=== PATIENT | female | born 1990 | race Caucasian/White ===

== ENCOUNTER 2016-08-13 09:55 | Inpatient (IN) | payer OTHER ==
[~2016-08-13] VITALS: Ht 160 cm; Wt 96.4 kg
[2016-08-13] MEDS ORDERED: PRENAT PO (10:17)
[2016-08-13] MEDS ORDERED: CHOL400T10 PO (10:17)
[2016-08-13 10:18] VITALS: Ht 160 cm; Wt 96.4 kg
[2016-08-13 10:19] VITALS: BP 134/82; PULSE 122; RESP 20
[2016-08-13] MEDS ORDERED: OXYTOCIN 30 UNITS/LR 500 ML IV SCH (11:00)
[2016-08-13] MEDS ORDERED: IBUPROFEN 600 MG TAB PO PRN (11:00)
[2016-08-13] MEDS ORDERED: CARBOPROST 250 MCG INJ IM PRN (11:00)
[2016-08-13] MEDS ORDERED: OXYTOCIN 30 UNITS/LR 500 ML IV PRN (11:00)
[2016-08-13] MEDS ORDERED: LIDOCAINE 1% (MPF) 30 ML INJ INJ PRN (11:00)
[2016-08-13] MEDS ORDERED: BUTORPHANOL 2 MG INJ IV PRN (11:00)
[2016-08-13] MEDS ORDERED: ACETAMINOPHEN/CODEINE #3 TAB PO PRN (11:00)
[2016-08-13] MEDS ORDERED: METHYLERGONOVINE 0.2 MG INJ IM PRN (11:00)
[2016-08-13] MEDS ORDERED: MISOPROSTOL 200 MCG TAB PR PRN (11:00)
[2016-08-13] MEDS: LACTATED RINGER'S 1,000 ML IV SCH ×3 (11:25→21:51)
[2016-08-13 11:38] LABS: ADD SCAN DIFF NO
[2016-08-13] MEDS ORDERED: DINOPROSTONE 10 MG VAG SUPP VAG ONE (11:45)
[2016-08-13 11:51] LABS: INR 0.9; PROTIME 12.1 Sec (12.2-14.2); PT RATIO 0.9
[2016-08-13 11:52] LABS: PARTIAL THROMBOPLASTIN TIME 25.8 Sec (25.0-35.0)
[2016-08-13] MEDS ORDERED: LACTATED RINGER'S 1,000 ML IV PRN (12:00)
[2016-08-13 12:02] LABS: BASOPHILS % 0.3 % (0.0-2.0); EOSINOPHILS # 0.1 10^3/ul (0.0-0.5); EOSINOPHILS % 0.8 % (0.0-7.0); HEMATOCRIT 36.9 % (37.0-47.0); LYMPHOCYTES # 1.2 10^3/ul (0.8-2.9); LYMPHOCYTES % 13.7 % (15.0-51.0); MEAN CORPUSCULAR HEMOGLOBIN 30.2 pg (29.0-33.0); MEAN CORPUSCULAR HGB CONC 32.5 g/dl (32.0-37.0); MEAN CORPUSCULAR VOLUME 92.9 fl (82.0-101.0); MEAN PLATELET VOLUME 10.2 fl (7.4-10.4); MONOCYTE # 0.7 10^3/ul (0.3-0.9); MONOCYTES % 7.2 % (0.0-11.0); PLATELET COUNT 228 10^3/UL (140-415); RED BLOOD COUNT 3.97 10^6/ul (4.20-5.40); RED CELL DISTRIBUTION WIDTH 13.8 % (11.5-14.5)
--- NOTE | 2016-08-13 17:48 | HP ---
Date/Time of Note Date/Time of Note DATE: 08/13/16 TIME: 17:42 OB - History Hx of Present Free Text/Dictation 26y.o at 39w1d here for induction of laboe electively Chief Complaint: for induction of labor Estimated Due Date: Aug 19, 2016 : 2 Para: 1 Spontaneous : 0 Therapeutic : 0 Care: Good Care Ultrasounds: Normal mid trimester US Obstetrical Complications: None Medical Complications: None Past Family/Social History * Past Medical, Surgical, Family and Obstetric Histories reviewed from chart. Blood Type: O+ Rubella: not immune (equivocal) RPR/VDRL: Negative GBS Status: Negative HBsAG: Negative OB Admission Exam Vital Signs Vital Signs Vital Signs Date Time Temp Pulse Resp B/P Pulse Ox O2 Delivery O2 Flow Rate FiO2 08/13/16 10:19 98.7 122 20 134/82 Room Air Physical Exam HEENT: WNL Heart: Rhythm Normal Lungs: Clear, Equal Abdomen: WNL Extremities: Normal Reflexes: Normal Cervical Dilatation: 1cm Effacement: 50% Station: -3 Membranes: Intact Amniotic Fluid: Unevaluable Heart Rate: 130's Decelerations: Variable Decelerations Varibility: Moderate Contractions on Admission: < 5 Minutes Apart Intensity: Mild Last 72 hours Lab Results CBC & BMP 08/13/16 11:20 OB Assessment/Plan Reason for admission: induction of labor Other Assessment: IUP 39W1D Induction Method: per Misoprostol Protocol SERGIO GALDAMEZ MD Aug 13, 2016 17:47
[2016-08-13] MEDS ORDERED: FENTAnyl 2MCG/ML-ROPIV 0.2% 100 ML ONE (21:20)
[2016-08-14 03:13] LABS: BARBITURATES Negative (NEGATIVE); BENZODIAZEPINES Negative (NEGATIVE); CANNABINOIDS Negative (NEGATIVE); COCAINE Negative (NEGATIVE); OPIATES Negative (NEGATIVE)
[2016-08-14] MEDS: FENTAnyl 2MCG/ML-ROPIV 0.2% 100 ML BAG EPI SCH ×2 (03:42→10:06)
[2016-08-14] MEDS: LACTATED RINGER'S 1,000 ML IV SCH ×2 (03:58→06:37)
[2016-08-14] MEDS ORDERED: NALOXONE (0.4 MG/ML) INJ IV PRN (04:00)
[2016-08-14] MEDS ORDERED: HYDROmorphONE 1 MG/ML SYG IV PRN ×2 (04:00)
[2016-08-14] MEDS ORDERED: DIPHENHYDRAMINE 50 MG INJ IV PRN (04:00)
[2016-08-14] MEDS ORDERED: ONDANSETRON 4 MG INJ IV PRN (04:00)
[2016-08-14] MEDS ORDERED: MINERAL OIL LIGHT 10 ML VIAL TOP ONE (11:30)
[2016-08-14] MEDS: OXYTOCIN 30 UNITS/LR 500 ML IV SCH ×2 (12:04→12:32)
--- NOTE | 2016-08-14 13:32 | LDN ---
Date/Time of Note Date/Time of Note DATE: 08/14/16 TIME: 13:29 Delivery Summary op spontaneous rotation normal vaginal delivery Placenta Delivered: Spontaneously Meconium: Thick Perineum intact?: No Perineal laceration: 1 Perineal laceration repair: 000ch gut left periurethral laceration Anesthesia type: Epidural Estimated blood loss: 100 Sponge & Needle done & correct: Yes All needle counts correct: Yes Any foreign bodies felt in the: No Problems: Delivery Information Sex Infant Sex: male Apgars 1 Minute: 8 5 Minute: 9 Suctioning Nose & mouth suctioned at med: Yes Umbilical Cord Umbilical cord with: 3 Vessels Cord presentations: no nuchal cord Cord Blood was obtained: Yes Mother & Baby Disposition Disposition Mom & Baby to Maternity; Good: Yes Mom transferred to: Other () Baby to NICU: No SERGIO GALADMEZ MD Aug 14, 2016 13:32
[2016-08-14 14:20] VITALS: BP 124/58; RESP 18
[2016-08-14 16:25] VITALS: BP 120/60; PULSE 88; RESP 18
[2016-08-14] MEDS ORDERED: OXYTOCIN 30 UNITS/LR 500 ML IV PRN (16:30)
[2016-08-14] MEDS ORDERED: LANOLIN 7 GM TUBE TOP PRN (16:30)
[2016-08-14] MEDS ORDERED: OXYCODONE/ASPIRIN (4.88/325) TAB PO PRN ×2 (16:30)
[2016-08-14] MEDS ORDERED: MISOPROSTOL 200 MCG TAB PR PRN (16:30)
[2016-08-14] MEDS ORDERED: WITCH HAZEL/GLYCERIN PAD PR PRN (16:30)
[2016-08-14] MEDS ORDERED: METHYLERGONOVINE 0.2 MG INJ IM PRN (16:30)
[2016-08-14] MEDS ORDERED: ZOLPIDEM 5 MG TAB PO PRN (16:30)
[2016-08-14] MEDS ORDERED: BENZOCAINE 20% 56 ML SPRAY TOP PRN (16:30)
[2016-08-14] MEDS ORDERED: CARBOPROST 250 MCG INJ IM PRN (16:30)
[2016-08-14] MEDS: IBUPROFEN 600 MG TAB PO SCH ×2 (17:34→23:22)
[2016-08-14 20:00] VITALS: BP 133/76; PULSE 79; RESP 20
[2016-08-14] MEDS: SENNA/DOCUSATE NA (8.6MG/50MG) TAB PO SCH (21:42)
[2016-08-15 04:26] VITALS: BP 120/60; PULSE 76; RESP 20
[2016-08-15] MEDS: IBUPROFEN 600 MG TAB PO SCH ×4 (05:35→23:59)
[2016-08-15 06:54] LABS: ADD SCAN DIFF NO
[2016-08-15 07:00] LABS: BASOPHILS % 0.2 % (0.0-2.0); EOSINOPHILS # 0.2 10^3/ul (0.0-0.5); EOSINOPHILS % 1.5 % (0.0-7.0); HEMATOCRIT 32.5 % (37.0-47.0); HEMOGLOBIN 10.6 g/dl (12.0-16.0); LYMPHOCYTES # 2.1 10^3/ul (0.8-2.9); LYMPHOCYTES % 16.9 % (15.0-51.0); MEAN CORPUSCULAR HEMOGLOBIN 30.6 pg (29.0-33.0); MEAN CORPUSCULAR HGB CONC 32.6 g/dl (32.0-37.0); MEAN CORPUSCULAR VOLUME 93.9 fl (82.0-101.0); MEAN PLATELET VOLUME 10.4 fl (7.4-10.4); MONOCYTE # 1.2 10^3/ul (0.3-0.9); MONOCYTES % 9.3 % (0.0-11.0); NEUTROPHIL # 8.8 10^3/ul (1.6-7.5); NEUTROPHILS % 71.1 % (39.0-77.0); PLATELET COUNT 172 10^3/UL (140-415); RED BLOOD COUNT 3.46 10^6/ul (4.20-5.40); RED CELL DISTRIBUTION WIDTH 13.7 % (11.5-14.5); WHITE BLOOD COUNT 12.4 10^3/ul (4.8-10.8)
[2016-08-15 08:00] VITALS: BP 121/79; PULSE 86; RESP 18
[2016-08-15] MEDS ORDERED: INFLUENZA VIRUS VACCINE 0.5 ML SYG IM* ONE (09:00)
--- NOTE | 2016-08-15 09:09 | PN ---
Date/Time of Note Date/Time of Note DATE: 08/15/16 TIME: 09:07 OB Subjective Subjective Subjective no c/o OB Objective Objective Objective vss afebrile fundus firm lochia min calf neg for tenderness OB Assessment/Plan Other Assessment: stable normal vaginal delivery Other plan: d/s home in am SERGIO GALDAMEZ MD Aug 15, 2016 09:08
[2016-08-15] MEDS: SENNA/DOCUSATE NA (8.6MG/50MG) TAB PO SCH ×2 (09:16→21:00)
[2016-08-15 16:07] VITALS: BP 128/84; PULSE 86; RESP 18
--- NOTE | 2016-08-15 17:20 | PD.PPDC ---
SOCK LINING EXAMINER Discharge Instruction Diagnosis Final Diagnosis: s/p normal vaginal delivery Condition Patient Condition: Stable Diet Diet: Special Diet Activity/Restrictions Activity: May Shower Restrictions: No Lifting No Sexual Activity Nothing in the Vagina No Anselmo No Tampons, douche Follow-up Follow-up with Physician: 6, Week/Weeks Return to clinic for INFORMATION TECHNOLOGY ASSISTANT Instructions: Fever greater than 101 Chills Worsening abdominal pain Excessive Vaginal Bleeding More than 2 pads per hour Unable to tolerate diet OB Instructions: Breast Tenderness Depression Blurried Vision Headache SERGIO GALDAMEZ MD Aug 15, 2016 17:20
--- NOTE | 2016-08-15 17:22 | DS ---
Date/Time of Note Date/Time of Note DATE: 08/15/16 TIME: 17:21 Obstetrical Discharge Record Final Diagnosis Final Diagnosis: Term delivered Vaginal Delivery Obstetrical Delivery: Spontaneous, Laceration, Repaired Complications Induction: Yes Condition on Discharge Physical Assessment Last Vitals: vss afebrile Voiding: Yes Bowel Movement: Yes Breast: Soft, non-tender Fundus: Firm Patient Condition: Stable SERGIO GALDAMEZ MD Aug 15, 2016 17:22
[2016-08-16 04:00] VITALS: BP 119/71; PULSE 69; RESP 20
[2016-08-16] MEDS: IBUPROFEN 600 MG TAB PO SCH ×2 (05:35→12:39)
[2016-08-16] MEDS: SENNA/DOCUSATE NA (8.6MG/50MG) TAB PO SCH (09:00)
[2016-08-16] MEDS ORDERED: DIPHTH/TET/ACEL PERTUSS (ADULT) 0.5 ML VIAL IM* ONE (09:00)
== END 2016-08-16 14:12 | disposition home or self-care (01) | DRG 775 ==
LOC: L-D 09:55 → PP1 08-14 14:18
PROVIDERS: ADMIT Obstetrics & Gynecology; ATTEND Obstetrics & Gynecology
PROC: 10E0XZZ Delivery of Products of Conception, External Approach (ICD-10-PCS; principal; 2016-08-14)
PROC: 0HQ9XZZ Repair Perineum Skin, External Approach (ICD-10-PCS; 2016-08-14)
PROC: 3E00X4Z Introduction of Serum, Toxoid and Vaccine into Skin and Mucous Membranes, External Approach (ICD-10-PCS; 2016-08-15)
DX: O70.0 First degree perineal laceration during delivery (principal); Z23 Encounter for immunization; Z3A.39 39 weeks gestation of pregnancy; Z37.0 Single live birth
CPT/HCPCS: 62319; 80307; 85025; 85610; 85730; 86592; 86900; 86901; 87340; 90686; 90715; 99464; J2590; J3010; J7120